=== PATIENT | male | born 1985 | race Caucasian/White ===

== ENCOUNTER 2019-05-13 11:00 | Emergency (ER) | payer OTHER, SELFPAY ==
[2019-05-13 11:03] VITALS: BP 135/75; PULSE 76; RESP 16; TEMP 36.6; O2SAT 100
--- NOTE | 2019-05-13 11:42 | ED_ITS ---
HPI - Recheck/Abnormal Lab/Rx General Chief Complaint: Recheck/Abnormal Lab/Rx Stated Complaint: Sent by doctor. Exposed to MRSA Time Seen by Provider: 05/13/19 11:03 Source: patient Mode of arrival: ambulatory Limitations: no limitations History of Present Illness HPI narrative: Otherwise healthy 33-year-old male sent over by the [facility] because he stated that within the past several days he has been exposed to people with diagnosed MRSA infections. He states that his cousin is in the ICU with a MRSA infection. He also states that his mother is currently being treated for an infection. He has no symptoms. He has never had cellulitis or an abscess that is needed incision and drainage. Related Data Allergies Allergy/AdvReac Type Severity Reaction Status Date / Time No Known Drug Allergies Allergy Verified 05/13/19 11:15 Review of Systems Constitutional Denies fever(s) and Denies headache(s) ENT Ears, Nose, Mouth, and Throat: Denies headache(s) Cardiovascular Denies chest pain and Denies dyspnea Respiratory Denies dyspnea Gastrointestinal Gastrointestinal: Denies abdominal pain and Denies nausea Musculoskeletal Denies myalgias and Denies arthralgias Integumentary/Breasts Denies lesions, Denies new lesions, Denies rash, Denies skin pain, Denies skin swelling, Denies skin ulcer and Denies wounds Neurologic Denies behavioral changes and Denies headache(s) Psychiatric Denies behavioral changes Hematologic/Lymphatic Denies easy bleeding and Denies easy bruising [facility] Medical History Healthy adult (Acute) Social History Smoking Status: Never smoker Social History Smoking Status: Never smoker Exam Initial Vital Signs Initial Vital Signs: Vital Signs Temperature 97.9 F 05/13/19 11:03 Pulse Rate 76 05/13/19 11:03 Respiratory Rate 16 05/13/19 11:03 Blood Pressure 135/75 05/13/19 11:03 Pulse Oximetry 100 05/13/19 11:03 Const General: cooperative, healthy appearing, comfortable, well developed, well groomed and No acute distress Orientation: alert, awake and oriented x3 HENMT Head: normal to inspection and normocephalic Resp Effort & Inspection: normal respiratory effort Cardio Rate: regular rate GI Inspection: non-distended Skin Lesions: no lesions Rashes: no rashes Neuro General: alert, awake and oriented x3 Cognition: normal cognition Speech: speech normal Gait: normal gait Extrem General: normal to inspection Psych Appearance: grossly normal and well kempt Course Vital Signs - 8 hr 05/13/19 11:03 Temperature 97.9 F Pulse Rate 76 Respiratory Rate 16 Blood Pressure [Left Arm] 135/75 Pulse Oximetry 100 MDM - Recheck/Abnormal Lab/Rx MDM Narrative Medical decision making narrative: Patient has no signs of infection today. He has never had an abscess requiring incision and drainage. Discussed this with the patient. Informed him that there is no indication for testing and/or treatment currently. We did discuss return precautions to include any abscesses. We did discuss the importance of washing his hands. He expressed understanding and agreement with plan. Discharge Plan Departure Patient Disposition: Home Clinical Impression: MRSA exposure Discharge Date/Time: 05/13/19 11:55 Interventions: ED Discharge Assessment Last Done: 05/13/19 11:54 Instructions: DI for Methicillin-Resistant Staph Infection (MRSA) Activity Restrictions/Additional Instructions: There is no testing or treatment that needs to be done unless you develop issues. Your medical department can do this. You have no restrictions on her activity. Return to the emergency department for any new or worsening symptoms
== END 2019-05-13 11:55 | disposition home or self-care (01) ==
PROVIDERS: Emergency Provider Emergency Medicine
DX: Z20.818 Contact with and (suspected) exposure to other bacterial communicable diseases (principal)
CPT/HCPCS: 99282